=== PATIENT | female | born 1950 | race Caucasian/White ===

== ENCOUNTER 2017-01-02 07:20 | Day surgery (SDC) | payer MEDICARE, BC ==
[2017-01-02] VITALS (7 sets, daily range): BP systolic 106–126; BP diastolic 54–87
[~2017-01-02] VITALS: Ht 165.1 cm; Wt 68.0 kg
[2017-01-02] MEDS ORDERED: POTASSIUM CHLO20 ME2 ORAL (08:20)
[2017-01-02] MEDS ORDERED: MAXZIDE 75 MG-1 EACH PO (08:20)
[2017-01-02] MEDS ORDERED: BUMETANIDE2 MG ORAL (08:20)
[2017-01-02] MEDS ORDERED: KLONOPIN1 MG ORAL (08:20)
[2017-01-02] MEDS ORDERED: ARMOUR THYROID30 MG ORAL (08:20)
[2017-01-02] MEDS ORDERED: TRAZODONE HCL150 MG ORAL (08:20)
[2017-01-02] MEDS ORDERED: AMBIEN5 MG ORAL (08:20)
[2017-01-02] MEDS ORDERED: NASACORT10.8 ML NS (08:21)
[2017-01-02] MEDS ORDERED: DITROPAN XL5 MG ORAL (08:22)
--- NOTE | 2017-01-02 08:55 | Short Stay Surgery H&P ---
History of Present Illness History of Present Illness Chief Complaint Abdominal pains and history of chronic GERDs with screening colon/fecal incontinence and history of colon polyps HPI Ophelia Garcia is a 66 year old female who was admitted on for Abdominal Pain, Dysphagia/GERDs/screening colon for polyps Patient History Allergies: Coded Allergies: Pork (Verified Allergy, Severe, 01/02/17) anaphylactic shock Uncoded Allergies: memory foam (Allergy, Severe, 01/02/17) break out micro fiber/polyester (Allergy, Severe, 01/02/17) breaks out greasy food (Allergy, Intermediate, 01/02/17) nausea and vomiting PAST MEDICAL HISTORY: (1) Hypertension (2) Hyperlipidemia (3) CVA (cerebral vascular accident) Past Surgeries: Social History: Medication History Scheduled Bumetanide* (Bumetanide*), 2 MG ORAL DAILY, (Reported) Clonazepam* (Klonopin*), 1 MG ORAL DAILY, (Reported) Oxybutynin Chloride (Ditropan Xl), 5 MG ORAL DAILY, (Reported) Potassium Chloride (Potassium Chloride), 20 MEQ ORAL THREE TIMES A DAY, ( Reported) Thyroid* ([place] Thyroid*), 180 MG ORAL DAILY, (Reported) Trazodone* (Trazodone*), 150 MG ORAL BEDTIME, (Reported) Zolpidem Tartrate* (Ambien*), 5 MG ORAL BEDTIME, (Reported) Miscellaneous Medications Triamcinolone Acetonide (Nasacort), 10.8 ML NS, (Reported) Triamterene/Hydrochlorothiazid (Maxzide 75 Mg-50 Mg Tablet), 1 EACH PO, ( Reported) Review of Systems Cardiovascular: Reports: no symptoms Respiratory: Reports: no symptoms Skeletal: Reports: no symptoms Gastrointestinal: Reports: gastro esophageal reflux disease Genitourinary: Reports: no symptoms Neurologic: Reports: no symptoms Endocrine: Reports: no symptoms Hematologic: Reports: no symptoms Physical Exam Vital Signs Last Vital Signs Date Time Temp Pulse Resp B/P (MAP) Pulse Ox O2 Delivery O2 Flow Rate FiO2 01/02/17 08:11 97.5 61 19 115/56 98 Room Air Skin: normal HENT: normal Heart: normal Lungs: normal Abdomen: abnormal Extremities: normal Genitourinary: normal Plan Plan of Care Upper and lower GI endocopic exam Preop Interventions None. Final Diagnosis: Attestation Are the patient's medical conditions optimized for surgery? Attestation Response: yes TAMARA MANRIQUEZ Jan 02, 2017 08:55
--- NOTE | 2017-01-02 08:56 | Pre-Procedure Note/Attestation ---
Pre-Procedure Note/Attestation Complete Prior to Procedure Planned Procedure: left Procedure Narrative: endoscopic exam of the upper and the lower GI tract. Attestation I attest that I discussed the nature of the procedure; its benefits; risks and complications; and alternatives (and the risks and benefits of such alternatives ), prior to the procedure, with the patient (or the patient's legal billing customer service representative). I attest that, if there was a reasonable possibility of needing a blood transfusion, the patient (or the patient's legal billing customer service representative) was given the [facility] standardized written summary, pursuant to the [employer] Blood Safety Act ([place] Health and Safety Code # 1645, as amended). I attest that I re-evaluated the patient just prior to the surgery and that there has been no change in the patient's H&P, except as documented below: MITRA,SAID Jan 02, 2017 08:56
[2017-01-02] MEDS ORDERED: LR 1000ml ONE (09:00)
[2017-01-02] MEDS ORDERED: Propofol 200mg/20ml IV ONE (09:00)
--- NOTE | 2017-01-02 09:37 | Anethesia Preoperative Eval ---
Anesthesia Pre-op PMH/ROS General Date of Evaluation: Jan 02, 2017 Time of Evaluation: 09:00 Anesthesiologist: farhat ASA Score: ASA 3 Mallampati Score Class I : Soft palate, uvula, fauces, pillars visible Class II: Soft palate, uvula, fauces visible Class III: Soft palate, base of uvula visible Class IV: Only hard plate visible Mallampati Classification: Class II Allergies: Coded Allergies: Pork (Verified Allergy, Severe, 01/02/17) anaphylactic shock Uncoded Allergies: memory foam (Allergy, Severe, 01/02/17) break out micro fiber/polyester (Allergy, Severe, 01/02/17) breaks out greasy food (Allergy, Intermediate, 01/02/17) nausea and vomiting Anesthesia Pre-op Phys. Exam Physician Exam Last Vital Signs Date Time Temp Pulse Resp B/P (MAP) Pulse Ox O2 Delivery O2 Flow Rate FiO2 01/02/17 08:11 97.5 61 19 115/56 98 Room Air Airway Exam Mallampati Score: Class II Francheska Sandoval MD Jan 02, 2017 09:37
--- NOTE | 2017-01-02 09:45 | Endoscopy Procedure Note ---
Endoscopy Procedure Note Indication for Procedure: abdominal pains, dysphagia, GERDS and fecal incontinenece Procedures Performed: EGD - Mild inflammatory process, 2mm, in prepyloric are biopsied. Gastric inlet patch in esophgus at 16 CM level otherwise normal study. Random gastric biopsy obtained., colonoscopy - Poor colon preparation with mimnial internal hemorrhoids. Highly redundant left colon with diverticulosis oaf the colon. Normal terminal ileum found in elioscopy. Operative Findings/Diagnosis: Gastritis/diverticulosis of the colon, see detailed reports. Specimen: yes Pt Tolerated Procedure Well: Yes Estimated Blood Loss: none Anesthesiologist: Dr. Osorio. Anesthesia: moderate sedation Medication Given: see anesthesia record Implant(s) used?: No 50 yrs or older w/o bx or poly: Yes 10yrs. F/U not recommended: Yes Med reason:<3 yrs.: System Reason:<3 yrs.: Last colonoscopy >= to 3yrs: Yes TAMARA MANRIQUEZ Jan 02, 2017 09:45
--- NOTE | 2017-01-02 09:46 | Discharge Instructions ---
Discharge Instructions Discharge Instructions Follow up with: Visit the doctor in the office after two weeks. For Congestive Heart Failure Reminder Report to your physician any weight gain of 5 pounds or more in one week. TAMARA MANRIQUEZ Jan 02, 2017 09:46
--- NOTE | 2017-01-02 09:48 | Immediate Post-Op Evaluation ---
Immediate Post-Op Evalulation Immediate Post-Op Evalulation Procedure: EGD COLONOSCOPY Date of Evaluation: Jan 02, 2017 Time of Evaluation: 09:47 Nausea: No Vomiting: No Patient Status: awake Francheska Sandoval MD Jan 02, 2017 09:48
--- NOTE | 2017-01-02 19:30 | Operative Note - Dictated ---
DATE OF OPERATION: 01/02/2017 PROCEDURE: Esophagogastroduodenoscopy with biopsy. PREOPERATIVE DIAGNOSES: Abdominal pain and history of chronic gastroesophageal reflux. POSTOPERATIVE DIAGNOSES: 1. Mild inflammatory process in prepyloric area at 11 o'clock. Biopsy is consistent with mild antritis locally. 2. Incidental finding of inlet patch in the esophagus at 16 cm, otherwise, normal study. Biopsy was taken from the prepyloric area as well as gastric body. MEDICATION USED: Per Dr. Osorio,anesthesiologist. INSTRUMENT: GIF Olympus upper GI video endoscope. DESCRIPTION OF PROCEDURE: The patient, after arriving in the endoscopy unit, was told about risks and benefits of the procedure, which she accepted and signed informed consent. She was then put on the left lateral decubitus position. After adequate IV sedation, the scope was gently passed through the cricopharyngeal area, was lodged into the upper esophagus, and gradually advanced towards the gastroesophageal junction. The entire length of the esophagus looked normal except an incidental finding of a 0.5 cm inlet patch at the level of 16 cm, which was in the upper part of the esophagus, however, there was no stricture, inflammatory process, bleeding ulcers, etc. The area of the larynx and the junction of laryngeal-esophageal area was examined carefully. There was no evidence of obstruction or inflammatory process or pathology. The scope was then guided through normal looking GE junction without any evidence of Penning[place]'s or hiatal hernia. The scope was then guided into the stomach. Gastric cavity was distended, and gradually and in cable tester fashion, the areas of the fundus and the body and the antrum were examined carefully. There was no any major pathology such as inflammatory process, gastritis, ulcers, tumors, hemangioma, etc. No polyps. A random biopsy from gastric body obtained and subsequently, scope was passed through antral and pyloric area, which revealed an evidence of 3 to 4 mm inflammatory area over the 11 o'clock next to the pyloric channel. There were no ulcers or bleeding. One biopsy from this area was obtained, however. At this time, the scope was advanced into the duodenal bulb. First and second portions of duodenum were found to be completely normal. At this time, the scope was pulled back into the stomach. A retroflexion maneuver was applied and the area of the fundus and GE junction was examined again, which revealed no pathology. At this point, the scope was pulled out and the procedure was terminated. The patient tolerated the procedure well. Said Alice Marcelo DR: JET JOB#: [id number] CC:
--- NOTE | 2017-01-02 19:45 | Procedure Note ---
DATE OF PROCEDURE: 01/02/2017 PROCEDURE: Total colonoscopy and ileoscopy. PREOPERATIVE DIAGNOSES: 1. Fecal incontinence. 2. Abdominal pain. 3. Screening colonoscopy. POSTOPERATIVE DIAGNOSES: 1. Highly redundant colon with poor colonic preparation. 2. Diverticulosis of the colon. 3. Normal terminal ileum. MEDICATIONS USED: Per Dr. Osorio, anesthesiologist. INSTRUMENT: GIF Olympus videocolonoscope. DESCRIPTION OF PROCEDURE: The patient, after arriving in the endoscopy unit, was told about risks and benefits of the procedure, which she accepted and signed the informed consent. At this time, the scope was gradually passed through the anal area, which revealed evidence of minimal internal hemorrhoids of no great significance. A retroflexion maneuver was applied here, which did not reveal any other pathology in the rectum. The scope was gradually passed through a very redundant left colon, which revealed evidence of liquidy stool along the colon suggestive of poor colonic preparation. However, there was no gross pathology and no particular polypoid lesions, tumors, stricture, etc., was found. There were areas of diverticular lesions in this area. However, as the colon was quite redundant and took significant amount of time to pass through here to reach to splenic flexure and from there, the scope was gradually guided into the transverse colon. These areas remained to be normal except occasional diverticular openings as I mentioned earlier. Finally, the scope could reach towards the hepatic flexure, guided into the right colon, and all the way to the base of the cecum and these areas also revealed normal finding without any major pathology, though evidence of small hyperplastic polypoid lesion due to poor colonic preparation could not be ruled out. At this time, the scope passed through the terminal ilium and approximately 10 cm of the scope was entered into this area, which revealed normal finding without any stricture, ulcers, tumors, etc. At this time, within 6 minutes, the scope was gradually pulled out and re-evaluation of the colon did not reveal any other pathology rather than what was stated earlier. The patient tolerated the procedure well and left the endoscopy room in a good condition. Said Alice Marcelo DR: Mildred JOB#: [id number] CC:
== END 2017-01-02 11:15 | disposition home or self-care (01) ==
LOC: GAS 07:20
DX: Z12.11 Encounter for screening for malignant neoplasm of colon (principal); K21.9 Gastro-esophageal reflux disease without esophagitis; K31.89 Other diseases of stomach and duodenum; K57.30 Diverticulosis of large intestine without perforation or abscess without bleeding; R15.9 Full incontinence of feces; I10 Essential (primary) hypertension; E78.5 Hyperlipidemia, unspecified; Z86.73 Personal history of transient ischemic attack (TIA), and cerebral infarction without residual deficits; Z91.018 Allergy to other foods; K29.50 Unspecified chronic gastritis without bleeding
CPT/HCPCS: 43239; 45378; J2704; J7120; 94003; 94150